=== PATIENT | female | born 1950 ===

== ENCOUNTER 2016-04-01 12:22 | Outpatient (RCR) | payer OTHER | END 2016-04-19 | disposition home or self-care (01) | LOC: PTY 12:22 | PROVIDERS: ATTEND Internal Medicine | DX: G62.9 Polyneuropathy, unspecified (principal); R27.8 Other lack of coordination; R26.9 Unspecified abnormalities of gait and mobility; Z91.81 History of falling ==

== ENCOUNTER 2016-04-22 13:00 | Outpatient (RCR) | payer OTHER | END 2016-05-17 | disposition home or self-care (01) | LOC: PTY 13:00 | PROVIDERS: ATTEND Internal Medicine | DX: G62.9 Polyneuropathy, unspecified (principal); R27.8 Other lack of coordination; R26.9 Unspecified abnormalities of gait and mobility; Z91.81 History of falling ==